=== PATIENT | male | born 1985 | race Caucasian/White ===

== ENCOUNTER 2016-09-22 09:14 | Emergency (ER) | payer BC ==
[~2016-09-22] VITALS: Ht 175.3 cm; Wt 122.2 kg
[~2016-09-22 09:14] MED LIST: AZITHROMYCIN250 MG1 PO; ROBITUSSIN AC,T10 ML PO
[2016-09-22] MEDS ORDERED: BUPROPION XL150 MG PO (09:23)
[2016-09-22] MEDS ORDERED: OMEPRAZOLE40 M1 PO (09:24)
[2016-09-22 09:39] LABS: HEMATOCRIT 42.3 % (38.0-50.0); MCH 27.6 PG (29.0-34.0); MCHC 32.6 G/DL (30.0-36.0); MCV 84.6 FL (86-99); MEAN PLAT.VOLUME 9.7 uM^3 (9.0-12.4); PLATELET COUNT 246 K/uL (156-360); RBC DIS.WIDTH-SD 39.8 % (39-53); WHITE BLOOD COUNT 6.4 K/uL (4.1-10.2)
[2016-09-22 09:51] LABS: CHLORIDE 104 mEq/L (99-109); POTASSIUM 4.1 mEq/L (3.7-5.4); SODIUM 140 mEq/L (136-147)
[2016-09-22 09:53] LABS: GLUCOSE 126 mg/dL (70-99)
[2016-09-22 09:54] LABS: ANION GAP 11 MEQ/L (2-14)
[2016-09-22 09:57] LABS: GFR ESTIMATE (CALCULATED) > 59 mL/min/
[2016-09-22 09:58] LABS: UREA NITROGEN (BUN) 20 mg/dL (9-23)
[2016-09-22] MEDS ORDERED: ULTRAM50 MG PO (11:27)
[2016-09-22] MEDS ORDERED: KEFLEX500 MG PO (11:27)
[2016-09-22 11:43] VITALS: BP 135/86
== END 2016-09-22 12:17 | disposition home or self-care (01) ==
LOC: EME 09:14
PROVIDERS: Nurse Practitioner Family
DX: K11.20 Sialoadenitis, unspecified (principal)
CPT/HCPCS: 70487; 80048; 85027; 99281; 99285; J0690; J1885; J7030; J7050